=== PATIENT | female | born 1945 | race African-American/Black ===

== ENCOUNTER 2017-04-27 14:17 | Inpatient (IN) | payer OTHER ==
[~2017-04-27] VITALS: Ht 165.1 cm; Wt 69.4 kg
[2017-04-27 15:04] LABS: BASOPHILS % 1.9 % (0.0-2.0); EOSINOPHILS % 2.4 % (0.0-5.0); HEMATOCRIT. 27.2 % (36.0-48.0); HEMOGLOBIN. 8.8 g/dL (12.0-16.0); LYMPHOCYTES % 16.5 % (20.0-50.0); MEAN CORPUSCULAR HEMOGLOBIN 28.7 pg (28.0-32.0); MEAN CORPUSCULAR VOLUME 88.7 fL (81.0-99.0); MEAN PLATELET VOLUME 7.2 fl (7.4-10.4); MONOCYTES % 4.6 % (2.0-8.0); NEUTROPHILS % 74.6 % (40.0-76.0); PLATELET 377 x1000/uL (130-400); RED BLOOD CELL COUNT 3.07 mill/uL (4.2-5.4); RED CELL DISTRIBUTION WIDTH 14.7 % (11.6-14.6)
[2017-04-27 15:16] LABS: PROTHROMBIN TIME 10.7 sec (9.4-11.6)
[2017-04-27 15:19] LABS: CARBON DIOXIDE 20 mEq/L (21-32); CHLORIDE 109 mEq/L (98-107); CREATINE KINASE MB FRACTION 3.1 ng/mL (0.5-3.6); TROPONIN I 0.05 ng/mL (0.00-0.04)
[2017-04-27] MEDS ORDERED: HYDRALAZINE HCL 50MG TABLET PO ONE (16:00)
[2017-04-27 16:16] LABS: CLARITY URINE CLOUDY (CLEAR); COLOR URINE YELLOW (YELLOW); GLUCOSE URINE NEGATIVE (NEGATIVE); KETONES URINE NEGATIVE (NEGATIVE); LEUKOCYTE ESTERASE URINE 2+ (NEGATIVE); NITRITE URINE NEGATIVE (NEGATIVE); OCCULT BLOOD URINE 1+ (NEGATIVE); PH URINE 6.5 (4.5-8.0); PROTEIN URINE 4+ (NEGATIVE); SPECIFIC GRAVITY URINE 1.014 (1.005-1.030); UROBILINOGEN URINE 0.2 E.U./dL (0.2-1.0)
[2017-04-27] MEDS ORDERED: CEFTRIAXONE 1 G PREMIX 50 ML IV ONE (16:30)
[2017-04-27] MEDS ORDERED: NITROGLYCERIN 0.4MG TABLET SL SL PRN (16:45)
[2017-04-27] MEDS ORDERED: DEXTROSE 50% WATER 50ML SYRINGE IV PRN (16:45)
[2017-04-27] MEDS ORDERED: IPRATROPIUM/ALBUTEROL 0.5-3(2.5)MG/3ML NEB INH PRN (16:45)
[2017-04-27] MEDS ORDERED: TRAMADOL 50MG TABLET PO PRN (16:45)
[2017-04-27] MEDS ORDERED: MAGNESIUM/ALUMINUM HYDROXIDE/SIMETHICONE 30ML UDC PO PRN (16:45)
[2017-04-27] MEDS ORDERED: ONDANSETRON HCL 4MG/2ML VIAL IV PRN (16:45)
[2017-04-27] MEDS ORDERED: DOCUSATE SODIUM 100MG CAPSULE PO PRN (16:45)
[2017-04-27] MEDS ORDERED: DIPHENHYDRAMINE 50MG/ML VIAL IV PRN (16:45)
[2017-04-27] MEDS ORDERED: CLONIDINE 0.2MG TABLET PO PRN (16:45)
[2017-04-27] MEDS ORDERED: ACETAMINOPHEN 325MG TABLET PO PRN (16:45)
[2017-04-27] MEDS ORDERED: GUAIFENESIN 200MG/10ML SUGAR FREE UDC PO PRN (16:45)
[2017-04-27 17:47] LABS: FOLIC ACID (FOLATE) SERUM 11.8 ng/mL (>5.38)
[2017-04-27 18:12] LABS: *AMPHETAMINES SCREEN URINE NEGATIVE (NEGATIVE); *BARBITURATES SCREEN URINE NEGATIVE (NEGATIVE); *BENZODIAZEPINES SCREEN URINE NEGATIVE (NEGATIVE); *COCAINE SCREEN URINE NEGATIVE (NEGATIVE); CANNABINOID URINE SCREEN NEGATIVE (NEGATIVE); METHADONE URINE SCREEN NEGATIVE (NEGATIVE); OPIATES URINE SCREEN NEGATIVE (NEGATIVE); PHENCYCLIDINE URINE SCREEN NEGATIVE (NEGATIVE)
[2017-04-27] MEDS ORDERED: LEVOFLOXACIN 500MG PREMIX 100 ML IV ONE (19:19)
[2017-04-27] MEDS: AMLODIPINE 10MG TABLET PO SCH (19:30)
[2017-04-27 20:30] VITALS: BP 190/106
[2017-04-27] MEDS: INSULIN LISPRO 100 UNITS/ML SUBCUT SCH (21:00)
[2017-04-27] MEDS ORDERED: ENOXAPARIN 30MG/0.3ML SYR SUBCUT SCH (21:00)
[2017-04-27] MEDS ORDERED: ZOLPIDEM TARTRATE 5MG TABLET PO PRN (21:00)
[2017-04-27] MEDS: BLOOD SUGAR DIAGNOSTIC STRIP TEST SCH (21:10)
[2017-04-27] MEDS: METOPROLOL TARTRATE 25MG TABLET PO SCH (21:18)
[2017-04-27] MEDS: HYDRALAZINE HCL 50MG TABLET PO SCH (21:18)
[2017-04-27] MEDS ORDERED: AMLO5TAB4 PO (21:38)
[2017-04-27] MEDS: NITROGLYCERIN 0.4MG/HR PATCH TOP SCH (21:49)
[2017-04-27 22:50] LABS: CREATINE KINASE MB FRACTION 3.5 ng/mL (0.5-3.6); TROPONIN I 0.16 ng/mL (0.00-0.04)
[2017-04-28] VITALS: BP 131/70
[2017-04-28 04:00] VITALS: BP 124/76
[2017-04-28] MEDS: HYDRALAZINE HCL 50MG TABLET PO SCH ×2 (05:17→13:43)
[2017-04-28 07:28] LABS: CREATINE KINASE MB FRACTION 3.7 ng/mL (0.5-3.6); TROPONIN I 0.12 ng/mL (0.00-0.04)
[2017-04-28 07:39] LABS: BASOPHILS % 0.4 % (0.0-2.0); HEMATOCRIT. 27.5 % (36.0-48.0); LYMPHOCYTES % 12.2 % (20.0-50.0); MEAN CORPUSCULAR VOLUME 88.9 fL (81.0-99.0); MEAN PLATELET VOLUME 7.6 fl (7.4-10.4); MONOCYTES % 3.1 % (2.0-8.0); NEUTROPHILS % 84.3 % (40.0-76.0); PLATELET 387 x1000/uL (130-400); RED BLOOD CELL COUNT 3.09 mill/uL (4.2-5.4)
[2017-04-28] MEDS: BLOOD SUGAR DIAGNOSTIC STRIP TEST SCH ×2 (07:44→12:37)
[2017-04-28] MEDS: INSULIN LISPRO 100 UNITS/ML SUBCUT SCH ×2 (07:44→12:59)
[2017-04-28 07:55] LABS: CARBON DIOXIDE 18 mEq/L (21-32); CHLORIDE 106 mEq/L (98-107)
[2017-04-28 08:00] VITALS: BP 137/64
[2017-04-28] MEDS: AMLODIPINE 10MG TABLET PO SCH (08:28)
[2017-04-28] MEDS: METOPROLOL TARTRATE 25MG TABLET PO SCH (08:29)
[2017-04-28] MEDS: NITROGLYCERIN 0.4MG/HR PATCH TOP SCH (09:58)
[2017-04-28] MEDS ORDERED: FUROSEMIDE 100MG/10ML VIAL IVP NR (10:00)
[2017-04-28 10:35] LABS: BG BASE EXCESS -6.5 mmol/L (-2.0-2.0); BG CARBOXYHEMOGLOBIN 0.3 % (0.5-1.5); BG DEOXYHEMOGLOBIN 2.8 % (0.0-5.0); BG FRACTION INSPIRED OXYGEN 24; BG HCO3 ACT 17.4 mmol/L (22.0-26.0); BG METHEMOGLOBIN 0.2 % (0.0-1.5); BG OXYGEN SATURATION 97.2 % (92.0-98.5); BG OXYHEMOGLOBIN 96.7 % (94.0-97.0); BG PH 7.397 (7.350-7.450); BG PO2 94.8 mmHg (75.0-100.0); BG SAMPLE SITE RIGHT RADIAL; BG TOTAL HEMOGLOBIN 9.1 g/dL (12.0-18.0); BG VENT MODE NASAL CANNULA
[2017-04-28 12:00] VITALS: BP 134/70
[2017-04-28] MEDS ORDERED: EPOETIN ALFA 10000UNITS/ML VIAL SUBCUT NR (12:00)
[2017-04-28 12:49] LABS: FERRITIN 126 ng/mL (10-291)
[2017-04-28 13:01] LABS: HEPATITIS B SURFACE ANTIGEN NEGATIVE
[2017-04-28 16:00] VITALS: BP 114/62
[2017-04-28 17:49] VITALS: BP 126/75
[2017-04-28] MEDS ORDERED: ATORVASTATIN CALCIUM 40MG TABLET PO SCH (21:00)
[2017-04-29] MEDS ORDERED: LEVOFLOXACIN 250MG PREMIX 50 ML IV SCH (14:00)
[2017-04-30 13:12] LABS: A/G RATIO 0.7 (0.7-1.7); ALBUMIN 2.6 g/dL (2.9-4.4); ALPHA-1-GLOBULIN 0.3 g/dL (0.0-0.4); ALPHA-2-GLOBULIN 0.9 g/dL (0.4-1.0); GAMMA GLOBULINS 1.3 g/dL (0.4-1.8); GLOBULIN TOTAL 3.5 g/dL (2.2-3.9); M-SPIKE Not Observed g/dL (Not Observed); TOTAL PROTEIN SERUM 6.1 g/dL (6.0-8.5)
[2017-05-01 13:09] LABS: COMPLEMENT C3 96 mg/dL (82-167)
== END 2017-04-28 18:10 | disposition short-term general hospital (02) | DRG 682 ==
LOC: ER 14:17 → 7WST 16:31 → EDBEDREQ 16:34 → ENRESERV 17:07
PROVIDERS: ADMIT Internal Medicine; ATTEND Internal Medicine
DX: N17.0 Acute kidney failure with tubular necrosis (principal); E43 Unspecified severe protein-calorie malnutrition; J96.91 Respiratory failure, unspecified with hypoxia; G93.41 Metabolic encephalopathy; J81.1 Chronic pulmonary edema; E87.2 Acidosis; E11.22 Type 2 diabetes mellitus with diabetic chronic kidney disease; E11.65 Type 2 diabetes mellitus with hyperglycemia; N39.0 Urinary tract infection, site not specified; D63.8 Anemia in other chronic diseases classified elsewhere; E78.5 Hyperlipidemia, unspecified; E83.51 Hypocalcemia; Z82.49 Family history of ischemic heart disease and other diseases of the circulatory system; Z86.73 Personal history of transient ischemic attack (TIA), and cerebral infarction without residual deficits; Z68.25 Body mass index [BMI] 25.0-25.9, adult; I10 Essential (primary) hypertension
CPT/HCPCS: 36415; 36600; 70450; 71010; 76770; 80053; 80061; 80305; 81001; 82375; 82550; 82553; 82570; 82607; 82728; 82746; 82805; 82962; 83036; 83540; 83550; 84155; 84156; 84165; 84484; 85025; 85610; 86160; 86592; 86803; 87086; 87186; 87340; 93005; 93970; 94664; 96365; 96372; 99285; J0696; J0885; J1650; J1815; J1940; J1956; J7620

== ENCOUNTER 2022-08-22 13:38 | Inpatient (IN) | payer MEDICARE, MEDICAID ==
[~2022-08-22] VITALS: Ht 165.1 cm; Wt 63.5 kg
[~2022-08-22 13:38] MED LIST: AMLO5TAB4 PO
[2022-08-22 14:43] LABS: MEAN CORPUSCULAR HEMOGLOBIN 30.1 pg (28.0-32.0); MEAN CORPUSCULAR VOLUME 93.5 fL (81.0-99.0); MEAN PLATELET VOLUME 6.7 fl (7.4-10.4); PLATELET 259 x1000/uL (130-400); RED BLOOD CELL COUNT 3.63 mill/uL (4.2-5.4); RED CELL DISTRIBUTION WIDTH 20.9 % (11.6-14.6)
[2022-08-22 14:49] LABS: CHLORIDE 104 mEq/L (98-107); PROTHROMBIN TIME 10.6 sec (9.6-11.0)
[2022-08-22 14:59] LABS: ETHANOL BLOOD < 10 mg/dL
[2022-08-22] MEDS ORDERED: CALC667T2 PO (15:03)
[2022-08-22 15:32] LABS: CLARITY URINE TURBID (CLEAR); COLOR URINE YELLOW (YELLOW); KETONES URINE NEGATIVE (NEGATIVE); LEUKOCYTE ESTERASE URINE 3+ (NEGATIVE); NITRITE URINE NEGATIVE (NEGATIVE); OCCULT BLOOD URINE 2+ (NEGATIVE); PH URINE 6.5 (4.5-8.0); PROTEIN URINE 3+ (NEGATIVE); SPECIFIC GRAVITY URINE 1.014 (1.005-1.030); UROBILINOGEN URINE 0.2 E.U./dL (0.2-1.0)
[2022-08-22 15:42] LABS: PLATELET ESTIMATE NORMAL
[2022-08-22 15:50] LABS: *AMPHETAMINES SCREEN URINE NEGATIVE (NEGATIVE); *BARBITURATES SCREEN URINE NEGATIVE (NEGATIVE); *BENZODIAZEPINES SCREEN URINE NEGATIVE (NEGATIVE); *COCAINE SCREEN URINE NEGATIVE (NEGATIVE); CANNABINOID URINE SCREEN NEGATIVE (NEGATIVE); METHADONE URINE SCREEN NEGATIVE (NEGATIVE); OPIATES URINE SCREEN NEGATIVE (NEGATIVE); PHENCYCLIDINE URINE SCREEN NEGATIVE (NEGATIVE)
[2022-08-22] MEDS ORDERED: PIPERACILLIN/TAZ 3.375G PREMIX 50 ML IV NR (16:30)
[2022-08-22] MEDS ORDERED: VANCOMYCIN 1G PREMIX 200 ML IV NR (16:30)
[2022-08-22] MEDS ORDERED: IOHEXOL-350 100 ML BOTTLE ONE (16:43)
[2022-08-22] MEDS ORDERED: ONDANSETRON HCL 4MG/2ML INJ IV PRN (17:15)
[2022-08-22] MEDS ORDERED: NITROGLYCERIN 0.4MG TABLET SL SL PRN (17:15)
[2022-08-22] MEDS ORDERED: ACETAMINOPHEN 325MG TABLET PO PRN ×2 (17:15)
[2022-08-22] MEDS ORDERED: IPRATROPIUM/ALBUTEROL 0.5-3(2.5)MG/3ML NEB NEB PRN (17:15)
[2022-08-22] MEDS ORDERED: CLONIDINE 0.1MG TABLET PO PRN (17:15)
[2022-08-22] MEDS ORDERED: ZOLPIDEM TARTRATE 5MG TABLET PO PRN (17:15)
[2022-08-22] MEDS ORDERED: DOCUSATE SODIUM 100MG CAPSULE PO PRN (17:15)
[2022-08-22] MEDS ORDERED: DEXTROSE 50% WATER 50ML SYRINGE IV PRN (17:15)
[2022-08-22] MEDS ORDERED: MAGNESIUM/ALUMINUM HYDROXIDE/SIMETHICONE 30ML UDC PO PRN (17:15)
[2022-08-22] MEDS ORDERED: PIPERACILLIN/TAZ 3.375G PREMIX 50 ML IV SCH (17:15)
[2022-08-22] MEDS ORDERED: GUAIFENESIN 200MG/10ML SUGAR FREE UDC PO PRN (17:15)
[2022-08-22] MEDS: INSULIN LISPRO 100 UNITS/ML SUBCUT SCH ×2 (18:00→21:00)
[2022-08-22] MEDS ORDERED: VANCOMYCIN 500MG PREMIX 100 ML IV NR (18:45)
[2022-08-22 19:06] LABS: T4 FREE 0.84 ng/dL (0.76-1.46)
[2022-08-22 20:41] LABS: VITAMIN B12 SERUM 293 pg/mL (211-911)
[2022-08-22] MEDS: FAMOTIDINE 20MG TABLET PO SCH (21:00)
[2022-08-22] MEDS: BLOOD SUGAR DIAGNOSTIC STRIP TEST SCH (21:31)
[2022-08-22] MEDS: ENOXAPARIN 30MG/0.3ML SYR SUBCUT SCH (21:39)
[2022-08-22 23:07] LABS: CREATINE KINASE MB FRACTION 2.3 ng/mL (0.5-3.6)
[2022-08-23] VITALS (10 sets, daily range): BP systolic 94–165; BP diastolic 43–75
[2022-08-23 05:42] LABS: HEMATOCRIT. 31.4 % (36.0-48.0); HEMOGLOBIN. 10.2 g/dL (12.0-16.0); MEAN CORPUSCULAR HEMOGLOBIN 30.1 pg (28.0-32.0); MEAN CORPUSCULAR VOLUME 92.8 fL (81.0-99.0); MEAN PLATELET VOLUME 6.9 fl (7.4-10.4); PLATELET 256 x1000/uL (130-400); RED BLOOD CELL COUNT 3.38 mill/uL (4.2-5.4); RED CELL DISTRIBUTION WIDTH 21.4 % (11.6-14.6)
[2022-08-23 05:46] LABS: CHLORIDE 105 mEq/L (98-107)
[2022-08-23 05:59] LABS: PHOSPHORUS 5.2 mg/dL (2.5-4.9)
[2022-08-23] MEDS: INSULIN LISPRO 100 UNITS/ML SUBCUT SCH ×4 (07:00→20:35)
[2022-08-23] MEDS: PIPERACILLIN/TAZOBACTAM 3.375 G in DEXTROSE 5% WATER 50 ML IV SCH ×2 (07:06→23:43)
[2022-08-23] MEDS: BLOOD SUGAR DIAGNOSTIC STRIP TEST SCH ×4 (07:10→20:23)
[2022-08-23 08:37] LABS: ATYPICAL LYMPHOCYTES 1
[2022-08-23 08:39] LABS: PLATELET ESTIMATE NORMAL
[2022-08-23] MEDS: AMLODIPINE 10MG TABLET PO SCH (10:32)
[2022-08-23] MEDS: ASPIRIN 81MG EC TABLET PO SCH (10:32)
[2022-08-23] MEDS ORDERED: ALBUTEROL (0.083%) 2.5MG/3ML NEB HHN PRN (20:00)
[2022-08-23] MEDS ORDERED: IPRATROPIUM BROMIDE (0.02%) 0.5MG/2.5ML NEB HHN PRN (20:00)
[2022-08-23] MEDS: FAMOTIDINE 20MG TABLET PO SCH (20:22)
[2022-08-23] MEDS: ENOXAPARIN 30MG/0.3ML SYR SUBCUT SCH (20:23)
[2022-08-23 22:42] LABS: HEPATITIS B SURFACE ANTIGEN NEGATIVE
[2022-08-24] VITALS (15 sets, daily range): BP systolic 127–175; BP diastolic 52–78
[2022-08-24] MEDS: INSULIN LISPRO 100 UNITS/ML SUBCUT SCH ×4 (08:10→20:50)
[2022-08-24] MEDS: AMLODIPINE 10MG TABLET PO SCH (08:33)
[2022-08-24] MEDS: ASPIRIN 81MG EC TABLET PO SCH (08:33)
[2022-08-24] MEDS: BLOOD SUGAR DIAGNOSTIC STRIP TEST SCH ×4 (08:34→20:49)
[2022-08-24] MEDS: PIPERACILLIN/TAZOBACTAM 3.375 G in DEXTROSE 5% WATER 50 ML IV SCH ×2 (08:34→20:34)
[2022-08-24] MEDS: CLOPIDOGREL 75MG TABLET PO SCH (12:43)
[2022-08-24] MEDS ORDERED: VANCOMYCIN 500MG PREMIX 100 ML IV NR (16:00)
[2022-08-24] MEDS: FAMOTIDINE 20MG TABLET PO SCH (20:34)
[2022-08-24] MEDS: ENOXAPARIN 30MG/0.3ML SYR SUBCUT SCH (20:35)
[2022-08-24] MEDS ORDERED: ATORVASTATIN CALCIUM 10MG TABLET PO SCH (21:00)
[2022-08-25] VITALS: BP 128/45
[2022-08-25 04:00] VITALS: BP 131/48
[2022-08-25] MEDS: BLOOD SUGAR DIAGNOSTIC STRIP TEST SCH ×2 (05:58→12:21)
[2022-08-25] MEDS: INSULIN LISPRO 100 UNITS/ML SUBCUT SCH ×2 (07:53→12:21)
[2022-08-25 08:00] VITALS: BP 153/52
[2022-08-25] MEDS: AMLODIPINE 10MG TABLET PO SCH (08:50)
[2022-08-25] MEDS: PIPERACILLIN/TAZOBACTAM 3.375 G in DEXTROSE 5% WATER 50 ML IV SCH (08:50)
[2022-08-25] MEDS: CLOPIDOGREL 75MG TABLET PO SCH (08:50)
[2022-08-25 12:00] VITALS: BP 150/62
[2022-08-25 14:56] VITALS: BP 150/62
== END 2022-08-25 16:41 | DRG 64 ==
LOC: ER 13:38 → MICUSO 16:51 → SUPCPDRO 17:02 → EDBEDREQSVC 17:08 → EDBEDREQ 17:08 → EDBEDREQTM 17:08 → EDBEDREQSVC 18:36 → 7WST 08-23 10:23
PROVIDERS: ADMIT Internal Medicine; ATTEND Internal Medicine
PROC: 5A1D70Z Performance of Urinary Filtration, Intermittent, Less than 6 Hours Per Day (ICD-10-PCS; 2022-08-23)
PROC: 5A1D70Z Performance of Urinary Filtration, Intermittent, Less than 6 Hours Per Day (ICD-10-PCS; principal; 2022-08-24)
DX: I63.29 Cerebral infarction due to unspecified occlusion or stenosis of other precerebral arteries (principal); G92.8 Other toxic encephalopathy; N18.6 End stage renal disease; N25.81 Secondary hyperparathyroidism of renal origin; I12.0 Hypertensive chronic kidney disease with stage 5 chronic kidney disease or end stage renal disease; G81.91 Hemiplegia, unspecified affecting right dominant side; E44.0 Moderate protein-calorie malnutrition; R47.01 Aphasia; N30.90 Cystitis, unspecified without hematuria; E11.22 Type 2 diabetes mellitus with diabetic chronic kidney disease; D63.8 Anemia in other chronic diseases classified elsewhere; M17.10 Unilateral primary osteoarthritis, unspecified knee; R26.9 Unspecified abnormalities of gait and mobility; Z82.49 Family history of ischemic heart disease and other diseases of the circulatory system; Z86.73 Personal history of transient ischemic attack (TIA), and cerebral infarction without residual deficits; Z99.2 Dependence on renal dialysis; Z79.4 Long term (current) use of insulin; Z68.23 Body mass index [BMI] 23.0-23.9, adult; R29.720 NIHSS score 20
CPT/HCPCS: 36415; 70496; 70498; 70551; 71045; 80053; 80061; 80202; 80305; 80320; 81003; 82550; 82553; 82607; 82746; 82962; 83036; 83540; 83550; 83605; 83735; 84100; 84439; 84443; 84484; 85025; 86705; 86709; 86803; 87077; 87186; 87340; 90935; 93005; 93306; 93970; 97162; 97166; 97535; 99291; C1893; J1650; J2543; J3370; J7060; Q9967; G0480

== ENCOUNTER 2022-08-25 16:30 | Inpatient (IN) | payer MEDICARE, MEDICAID ==
[~2022-08-25] VITALS: Ht 165.1 cm; Wt 63.5 kg
[2022-08-25 16:30] VITALS: BP 148/61
[~2022-08-25 16:30] MED LIST changes: +CALC667T2 PO
[2022-08-25] MEDS ORDERED: IPRATROPIUM BROMIDE (0.02%) 0.5MG/2.5ML NEB HHN PRN (17:45)
[2022-08-25] MEDS ORDERED: GUAIFENESIN 200MG/10ML SUGAR FREE UDC PO PRN (17:45)
[2022-08-25] MEDS ORDERED: NITROGLYCERIN 0.4MG TABLET SL SL PRN (17:45)
[2022-08-25] MEDS ORDERED: MAGNESIUM/ALUMINUM HYDROXIDE/SIMETHICONE 30ML UDC PO PRN (17:45)
[2022-08-25] MEDS ORDERED: ZOLPIDEM TARTRATE 5MG TABLET PO PRN (17:45)
[2022-08-25] MEDS ORDERED: ALBUTEROL (0.083%) 2.5MG/3ML NEB HHN PRN (17:45)
[2022-08-25 19:45] VITALS: BP 159/69
[2022-08-25 20:00] VITALS: BP 159/69
[2022-08-25] MEDS ORDERED: ATORVASTATIN CALCIUM 10MG TABLET PO SCH (21:00)
[2022-08-25] MEDS: INSULIN LISPRO 100 UNITS/ML SUBCUT SCH (21:00)
[2022-08-25] MEDS: FAMOTIDINE 20MG TABLET PO SCH (21:43)
[2022-08-25] MEDS: BLOOD SUGAR DIAGNOSTIC STRIP TEST SCH (21:44)
[2022-08-25] MEDS: ENOXAPARIN 30MG/0.3ML SYR SUBCUT SCH (21:46)
[2022-08-25] MEDS: PIPERACILLIN/TAZOBACTAM 3.375 G in DEXTROSE 5% WATER 50 ML IV SCH (21:46)
[2022-08-26] MEDS: BLOOD SUGAR DIAGNOSTIC STRIP TEST SCH ×4 (06:45→21:29)
[2022-08-26 06:47] LABS: HEMATOCRIT. 32.6 % (36.0-48.0); HEMOGLOBIN. 10.7 g/dL (12.0-16.0); LYMPHOCYTES % 29.5 % (20.0-50.0); MEAN CORPUSCULAR HEMOGLOBIN 30.3 pg (28.0-32.0); MEAN CORPUSCULAR VOLUME 92.6 fL (81.0-99.0); MEAN PLATELET VOLUME 7.1 fl (7.4-10.4); MONOCYTES % 12.2 % (2.0-8.0); NEUTROPHILS % 50.3 % (40.0-76.0); PLATELET 262 x1000/uL (130-400); RED BLOOD CELL COUNT 3.53 mill/uL (4.2-5.4); RED CELL DISTRIBUTION WIDTH 20.6 % (11.6-14.6)
[2022-08-26] MEDS: DEXTROSE 50% WATER 50ML SYRINGE IV PRN (06:51)
[2022-08-26 06:56] LABS: CHLORIDE 102 mEq/L (98-107)
[2022-08-26 08:00] VITALS: BP 143/63
[2022-08-26] MEDS: DOCUSATE SODIUM 100MG CAPSULE PO SCH ×2 (08:22→17:00)
[2022-08-26] MEDS: AMLODIPINE 10MG TABLET PO SCH (08:23)
[2022-08-26] MEDS: CLOPIDOGREL 75MG TABLET PO SCH (08:23)
[2022-08-26] MEDS: ENOXAPARIN 30MG/0.3ML SYR SUBCUT SCH (08:23)
[2022-08-26] MEDS: PIPERACILLIN/TAZOBACTAM 3.375 G in DEXTROSE 5% WATER 50 ML IV SCH ×2 (08:25→21:28)
[2022-08-26] MEDS: INSULIN LISPRO 100 UNITS/ML SUBCUT SCH ×4 (08:30→22:07)
[2022-08-26] MEDS: ASPIRIN 81MG TABLET PO SCH (13:16)
[2022-08-26 18:35] LABS: HEPATITIS B SURFACE ANTIGEN NEGATIVE
[2022-08-26 20:00] VITALS: BP 164/65
[2022-08-26] MEDS: FAMOTIDINE 20MG TABLET PO SCH (21:29)
[2022-08-26] MEDS: ATORVASTATIN CALCIUM 10MG TABLET PO SCH (21:44)
[2022-08-26] MEDS: CLONIDINE 0.1MG TABLET PO PRN (21:45)
[2022-08-27] VITALS (7 sets, daily range): BP systolic 144–178; BP diastolic 63–70
[2022-08-27 07:02] LABS: BASOPHILS % 1.4 % (0.0-2.0); EOSINOPHILS % 7.4 % (0.0-5.0); HEMATOCRIT. 31.5 % (36.0-48.0); HEMOGLOBIN. 10.1 g/dL (12.0-16.0); LYMPHOCYTES % 32.8 % (20.0-50.0); MEAN CORPUSCULAR HEMOGLOBIN 30.1 pg (28.0-32.0); MEAN CORPUSCULAR VOLUME 93.2 fL (81.0-99.0); MEAN PLATELET VOLUME 7.2 fl (7.4-10.4); MONOCYTES % 11.7 % (2.0-8.0); NEUTROPHILS % 46.7 % (40.0-76.0); PLATELET 277 x1000/uL (130-400); RED BLOOD CELL COUNT 3.38 mill/uL (4.2-5.4); RED CELL DISTRIBUTION WIDTH 20.4 % (11.6-14.6)
[2022-08-27] MEDS: BLOOD SUGAR DIAGNOSTIC STRIP TEST SCH ×4 (07:13→20:56)
[2022-08-27] MEDS: DEXTROSE 50% WATER 50ML SYRINGE IV PRN (07:14)
[2022-08-27 07:53] LABS: FERRITIN 1570 ng/mL (10-291)
[2022-08-27 08:06] LABS: VITAMIN B12 SERUM 351 pg/mL (211-911)
[2022-08-27] MEDS: INSULIN LISPRO 100 UNITS/ML SUBCUT SCH ×4 (09:00→21:00)
[2022-08-27] MEDS: PIPERACILLIN/TAZOBACTAM 3.375 G in DEXTROSE 5% WATER 50 ML IV SCH (11:36)
[2022-08-27] MEDS: DOCUSATE SODIUM 100MG CAPSULE PO SCH ×2 (11:36→11:42)
[2022-08-27] MEDS: ASPIRIN 81MG TABLET PO SCH (11:36)
[2022-08-27] MEDS: AMLODIPINE 10MG TABLET PO SCH (11:37)
[2022-08-27] MEDS: ENOXAPARIN 30MG/0.3ML SYR SUBCUT SCH (11:37)
[2022-08-27] MEDS: CLOPIDOGREL 75MG TABLET PO SCH (11:37)
[2022-08-27] MEDS: ACETAMINOPHEN 325MG TABLET PO PRN (16:20)
[2022-08-27] MEDS: CEPHALEXIN 250MG CAPSULE PO SCH (18:17)
[2022-08-27] MEDS: FAMOTIDINE 20MG TABLET PO SCH (20:55)
[2022-08-27] MEDS: ATORVASTATIN CALCIUM 10MG TABLET PO SCH (20:55)
[2022-08-28] MEDS: CEPHALEXIN 250MG CAPSULE PO SCH ×4 (00:10→18:09)
[2022-08-28] MEDS: BLOOD SUGAR DIAGNOSTIC STRIP TEST SCH ×4 (06:52→20:59)
[2022-08-28 08:00] VITALS: BP 154/82
[2022-08-28] MEDS: ASPIRIN 81MG TABLET PO SCH (08:39)
[2022-08-28] MEDS: AMLODIPINE 10MG TABLET PO SCH (08:40)
[2022-08-28] MEDS: CLOPIDOGREL 75MG TABLET PO SCH (08:41)
[2022-08-28] MEDS: ENOXAPARIN 30MG/0.3ML SYR SUBCUT SCH (08:41)
[2022-08-28] MEDS: DOCUSATE SODIUM 100MG CAPSULE PO SCH ×2 (08:42→17:00)
[2022-08-28] MEDS: INSULIN LISPRO 100 UNITS/ML SUBCUT SCH ×4 (08:45→20:59)
[2022-08-28 10:00] VITALS: BP 174/67
[2022-08-28] MEDS: CLONIDINE 0.1MG TABLET PO PRN (10:41)
[2022-08-28] MEDS: ONDANSETRON HCL 4MG/2ML INJ IV PRN (13:17)
[2022-08-28 13:48] VITALS: BP 148/63
[2022-08-28] MEDS ORDERED: SENNOSIDES 8.6MG TABLET PO PRN (18:30)
[2022-08-28 19:47] VITALS: BP 162/63
[2022-08-28] MEDS: FAMOTIDINE 20MG TABLET PO SCH (22:18)
[2022-08-28] MEDS: ATORVASTATIN CALCIUM 10MG TABLET PO SCH (22:18)
[2022-08-29] VITALS (12 sets, daily range): BP systolic 135–180; BP diastolic 65–78
[2022-08-29] MEDS: METOCLOPRAMIDE HCL 10MG/2ML VIAL IV SCH ×4 (00:30→17:28)
[2022-08-29] MEDS: CEPHALEXIN 250MG CAPSULE PO SCH ×4 (00:30→17:28)
[2022-08-29 06:55] LABS: BASOPHILS % 2.1 % (0.0-2.0); EOSINOPHILS % 6.4 % (0.0-5.0); HEMATOCRIT. 34.9 % (36.0-48.0); HEMOGLOBIN. 11.1 g/dL (12.0-16.0); LYMPHOCYTES % 34.5 % (20.0-50.0); MEAN CORPUSCULAR HEMOGLOBIN 29.8 pg (28.0-32.0); MEAN CORPUSCULAR VOLUME 94.1 fL (81.0-99.0); MEAN PLATELET VOLUME 6.8 fl (7.4-10.4); MONOCYTES % 11.2 % (2.0-8.0); NEUTROPHILS % 45.8 % (40.0-76.0); PLATELET 312 x1000/uL (130-400); RED BLOOD CELL COUNT 3.71 mill/uL (4.2-5.4)
[2022-08-29] MEDS: BLOOD SUGAR DIAGNOSTIC STRIP TEST SCH ×4 (07:16→21:50)
[2022-08-29] MEDS: INSULIN LISPRO 100 UNITS/ML SUBCUT SCH ×4 (07:16→21:50)
[2022-08-29] MEDS: DOCUSATE SODIUM 100MG CAPSULE PO SCH ×2 (08:52→17:00)
[2022-08-29] MEDS: CLOPIDOGREL 75MG TABLET PO SCH (08:56)
[2022-08-29] MEDS: AMLODIPINE 10MG TABLET PO SCH (08:57)
[2022-08-29] MEDS: ASPIRIN 81MG TABLET PO SCH (08:57)
[2022-08-29] MEDS: ONDANSETRON HCL 4MG/2ML INJ IV PRN (08:57)
[2022-08-29] MEDS: ENOXAPARIN 30MG/0.3ML SYR SUBCUT SCH (08:57)
[2022-08-29] MEDS: CLONIDINE 0.1MG TABLET PO PRN (12:43)
[2022-08-29] MEDS ORDERED: LOSARTAN POTASSIUM 100 MG TABLET PO SCH (16:00)
[2022-08-29] MEDS: FAMOTIDINE 20MG TABLET PO SCH (21:50)
[2022-08-29] MEDS: ATORVASTATIN CALCIUM 10MG TABLET PO SCH (21:50)
[2022-08-29] MEDS: HYDRALAZINE HCL 50MG TABLET PO SCH (22:55)
[2022-08-30] MEDS: CEPHALEXIN 250MG CAPSULE PO SCH ×4 (00:30→17:09)
[2022-08-30] MEDS: METOCLOPRAMIDE HCL 10MG/2ML VIAL IV SCH ×4 (00:30→17:09)
[2022-08-30] MEDS: HYDRALAZINE HCL 50MG TABLET PO SCH ×3 (06:50→21:42)
[2022-08-30] MEDS: BLOOD SUGAR DIAGNOSTIC STRIP TEST SCH ×4 (07:12→21:42)
[2022-08-30 08:00] VITALS: BP 133/47
[2022-08-30] MEDS: INSULIN LISPRO 100 UNITS/ML SUBCUT SCH ×4 (08:02→21:00)
[2022-08-30] MEDS: CLOPIDOGREL 75MG TABLET PO SCH (09:16)
[2022-08-30] MEDS: DOCUSATE SODIUM 100MG CAPSULE PO SCH ×2 (09:16→17:09)
[2022-08-30] MEDS: AMLODIPINE 10MG TABLET PO SCH (09:16)
[2022-08-30] MEDS: ASPIRIN 81MG TABLET PO SCH (09:16)
[2022-08-30] MEDS: ENOXAPARIN 30MG/0.3ML SYR SUBCUT SCH (09:17)
[2022-08-30 20:00] VITALS: BP 132/57
[2022-08-30 21:37] LABS: HEPATITIS B SURFACE ANTIGEN NEGATIVE
[2022-08-30] MEDS: FAMOTIDINE 20MG TABLET PO SCH (21:42)
[2022-08-30] MEDS: ATORVASTATIN CALCIUM 10MG TABLET PO SCH (21:42)
[2022-08-31] MEDS: CEPHALEXIN 250MG CAPSULE PO SCH ×3 (00:59→12:00)
[2022-08-31] MEDS: METOCLOPRAMIDE HCL 10MG/2ML VIAL IV SCH (00:59)
[2022-08-31] MEDS: BLOOD SUGAR DIAGNOSTIC STRIP TEST SCH ×4 (06:45→21:39)
[2022-08-31] MEDS: HYDRALAZINE HCL 50MG TABLET PO SCH ×3 (06:45→21:39)
[2022-08-31 08:00] VITALS: BP 143/55
[2022-08-31] MEDS: CLOPIDOGREL 75MG TABLET PO SCH (08:33)
[2022-08-31] MEDS: ASPIRIN 81MG TABLET PO SCH (08:34)
[2022-08-31] MEDS: DOCUSATE SODIUM 100MG CAPSULE PO SCH ×2 (08:34→17:00)
[2022-08-31] MEDS: AMLODIPINE 10MG TABLET PO SCH (08:34)
[2022-08-31] MEDS: ENOXAPARIN 30MG/0.3ML SYR SUBCUT SCH (08:41)
[2022-08-31] MEDS: INSULIN LISPRO 100 UNITS/ML SUBCUT SCH ×4 (09:00→21:00)
[2022-08-31] MEDS: ACETAMINOPHEN 325MG TABLET PO PRN (17:30)
[2022-08-31 19:10] LABS: 25-HYDROXY VITAMIN D3 8.6 ng/mL (.)
[2022-08-31 20:00] VITALS: BP 137/52
[2022-08-31] MEDS: ATORVASTATIN CALCIUM 10MG TABLET PO SCH (21:33)
[2022-08-31] MEDS: FAMOTIDINE 20MG TABLET PO SCH (21:33)
[2022-09-01] VITALS (7 sets, daily range): BP systolic 66–139; BP diastolic 33–65
[2022-09-01] MEDS: HYDRALAZINE HCL 50MG TABLET PO SCH ×3 (06:42→22:00)
[2022-09-01] MEDS: BLOOD SUGAR DIAGNOSTIC STRIP TEST SCH ×4 (06:45→21:21)
[2022-09-01] MEDS ORDERED: CEPHALEXIN 250MG CAPSULE PO SCH (09:00)
[2022-09-01] MEDS: ENOXAPARIN 30MG/0.3ML SYR SUBCUT SCH (09:00)
[2022-09-01] MEDS: INSULIN LISPRO 100 UNITS/ML SUBCUT SCH ×4 (09:00→21:00)
[2022-09-01] MEDS: DOCUSATE SODIUM 100MG CAPSULE PO SCH ×2 (10:06→17:00)
[2022-09-01] MEDS: ASPIRIN 81MG TABLET PO SCH (10:06)
[2022-09-01] MEDS: AMLODIPINE 10MG TABLET PO SCH (10:06)
[2022-09-01] MEDS: CLOPIDOGREL 75MG TABLET PO SCH (10:07)
[2022-09-01] MEDS: ERGOCALCIFEROL 50000UNITS CAPSULE PO SCH (13:15)
[2022-09-01] MEDS: ACETAMINOPHEN 325MG TABLET PO PRN (18:30)
[2022-09-01] MEDS: ATORVASTATIN CALCIUM 10MG TABLET PO SCH (21:15)
[2022-09-01] MEDS: FAMOTIDINE 20MG TABLET PO SCH (21:15)
[2022-09-02] MEDS: BLOOD SUGAR DIAGNOSTIC STRIP TEST SCH ×4 (06:35→21:00)
[2022-09-02] MEDS: HYDRALAZINE HCL 50MG TABLET PO SCH ×3 (06:35→22:00)
[2022-09-02 08:00] VITALS: BP 123/54
[2022-09-02] MEDS: INSULIN LISPRO 100 UNITS/ML SUBCUT SCH ×4 (09:00→21:00)
[2022-09-02] MEDS: ASPIRIN 81MG TABLET PO SCH (10:30)
[2022-09-02] MEDS: DOCUSATE SODIUM 100MG CAPSULE PO SCH ×2 (10:30→17:44)
[2022-09-02] MEDS: ENOXAPARIN 30MG/0.3ML SYR SUBCUT SCH (10:31)
[2022-09-02] MEDS: CLOPIDOGREL 75MG TABLET PO SCH (10:31)
[2022-09-02] MEDS: AMLODIPINE 10MG TABLET PO SCH (10:31)
[2022-09-02] MEDS: ACETAMINOPHEN 325MG TABLET PO PRN (17:44)
[2022-09-02 20:00] VITALS: BP 119/59
[2022-09-02] MEDS: FAMOTIDINE 20MG TABLET PO SCH (22:24)
[2022-09-02] MEDS: ATORVASTATIN CALCIUM 10MG TABLET PO SCH (22:24)
[2022-09-02 22:36] LABS: HEPATITIS B SURFACE ANTIGEN NEGATIVE
[2022-09-03] VITALS (9 sets, daily range): BP systolic 132–149; BP diastolic 52–63
[2022-09-03] MEDS: HYDRALAZINE HCL 50MG TABLET PO SCH ×3 (06:00→23:15)
[2022-09-03] MEDS: BLOOD SUGAR DIAGNOSTIC STRIP TEST SCH ×4 (06:10→21:49)
[2022-09-03] MEDS: INSULIN LISPRO 100 UNITS/ML SUBCUT SCH ×4 (06:11→21:58)
[2022-09-03] MEDS: ENOXAPARIN 30MG/0.3ML SYR SUBCUT SCH (08:28)
[2022-09-03] MEDS: CLOPIDOGREL 75MG TABLET PO SCH (08:28)
[2022-09-03] MEDS: DOCUSATE SODIUM 100MG CAPSULE PO SCH ×2 (08:28→16:19)
[2022-09-03] MEDS: ASPIRIN 81MG TABLET PO SCH (08:28)
[2022-09-03] MEDS: AMLODIPINE 10MG TABLET PO SCH (08:28)
[2022-09-03] MEDS: ACETAMINOPHEN 325MG TABLET PO PRN (18:57)
[2022-09-03] MEDS: FAMOTIDINE 20MG TABLET PO SCH (21:49)
[2022-09-03] MEDS: ATORVASTATIN CALCIUM 10MG TABLET PO SCH (21:50)
[2022-09-04] MEDS: HYDRALAZINE HCL 50MG TABLET PO SCH ×3 (06:14→21:45)
[2022-09-04 06:32] LABS: BASOPHILS % 1.7 % (0.0-2.0); EOSINOPHILS % 4.8 % (0.0-5.0); HEMATOCRIT. 33.2 % (36.0-48.0); HEMOGLOBIN. 10.9 g/dL (12.0-16.0); LYMPHOCYTES % 20.7 % (20.0-50.0); MEAN CORPUSCULAR VOLUME 91.6 fL (81.0-99.0); MEAN PLATELET VOLUME 6.9 fl (7.4-10.4); MONOCYTES % 13.4 % (2.0-8.0); NEUTROPHILS % 59.4 % (40.0-76.0); PLATELET 343 x1000/uL (130-400); RED BLOOD CELL COUNT 3.62 mill/uL (4.2-5.4)
[2022-09-04] MEDS: BLOOD SUGAR DIAGNOSTIC STRIP TEST SCH ×4 (07:17→21:43)
[2022-09-04] MEDS: INSULIN LISPRO 100 UNITS/ML SUBCUT SCH ×4 (07:18→21:00)
[2022-09-04 08:00] VITALS: BP 156/57
[2022-09-04] MEDS: CLOPIDOGREL 75MG TABLET PO SCH (11:51)
[2022-09-04] MEDS: AMLODIPINE 10MG TABLET PO SCH (11:51)
[2022-09-04] MEDS: ASPIRIN 81MG TABLET PO SCH (11:52)
[2022-09-04] MEDS: DOCUSATE SODIUM 100MG CAPSULE PO SCH ×2 (11:52→17:00)
[2022-09-04] MEDS: ENOXAPARIN 30MG/0.3ML SYR SUBCUT SCH (11:53)
[2022-09-04 20:00] VITALS: BP 153/60
[2022-09-04] MEDS: ATORVASTATIN CALCIUM 20MG TABLET PO SCH (21:45)
[2022-09-04] MEDS: FAMOTIDINE 20MG TABLET PO SCH (21:45)
[2022-09-05] VITALS (13 sets, daily range): BP systolic 115–136; BP diastolic 54–64
[2022-09-05] MEDS: HYDRALAZINE HCL 50MG TABLET PO SCH ×3 (06:00→22:00)
[2022-09-05] MEDS: BLOOD SUGAR DIAGNOSTIC STRIP TEST SCH ×4 (06:24→21:00)
[2022-09-05] MEDS: INSULIN LISPRO 100 UNITS/ML SUBCUT SCH ×4 (06:24→21:00)
[2022-09-05] MEDS: CLOPIDOGREL 75MG TABLET PO SCH (10:28)
[2022-09-05] MEDS: AMLODIPINE 10MG TABLET PO SCH (10:28)
[2022-09-05] MEDS: ASPIRIN 81MG TABLET PO SCH (10:28)
[2022-09-05] MEDS: DOCUSATE SODIUM 100MG CAPSULE PO SCH ×2 (10:28→17:45)
[2022-09-05] MEDS: ENOXAPARIN 30MG/0.3ML SYR SUBCUT SCH (10:29)
[2022-09-05] MEDS: ACETAMINOPHEN 325MG TABLET PO PRN ×2 (15:54→17:46)
[2022-09-05] MEDS: ATORVASTATIN CALCIUM 20MG TABLET PO SCH (21:05)
[2022-09-05] MEDS: FAMOTIDINE 20MG TABLET PO SCH (21:06)
[2022-09-06] MEDS: BLOOD SUGAR DIAGNOSTIC STRIP TEST SCH ×4 (06:30→20:30)
[2022-09-06] MEDS: HYDRALAZINE HCL 50MG TABLET PO SCH ×3 (06:56→22:00)
[2022-09-06] MEDS: INSULIN LISPRO 100 UNITS/ML SUBCUT SCH ×4 (06:57→20:30)
[2022-09-06 08:00] VITALS: BP 149/60
[2022-09-06] MEDS: ASPIRIN 81MG TABLET PO SCH (09:36)
[2022-09-06] MEDS: CLOPIDOGREL 75MG TABLET PO SCH (09:37)
[2022-09-06] MEDS: AMLODIPINE 10MG TABLET PO SCH (09:37)
[2022-09-06] MEDS: DOCUSATE SODIUM 100MG CAPSULE PO SCH ×2 (09:37→18:08)
[2022-09-06] MEDS: ACETAMINOPHEN 325MG TABLET PO PRN (09:38)
[2022-09-06] MEDS: ENOXAPARIN 30MG/0.3ML SYR SUBCUT SCH (09:40)
[2022-09-06 19:46] VITALS: BP 159/68
[2022-09-06] MEDS: ATORVASTATIN CALCIUM 20MG TABLET PO SCH (20:29)
[2022-09-06] MEDS: FAMOTIDINE 20MG TABLET PO SCH (20:29)
[2022-09-06 22:43] LABS: HEPATITIS B SURFACE ANTIGEN NEGATIVE
[2022-09-07] VITALS (11 sets, daily range): BP systolic 118–150; BP diastolic 40–73
[2022-09-07] MEDS: HYDRALAZINE HCL 50MG TABLET PO SCH ×3 (05:39→22:00)
[2022-09-07] MEDS: BLOOD SUGAR DIAGNOSTIC STRIP TEST SCH ×4 (05:39→21:00)
[2022-09-07] MEDS: INSULIN LISPRO 100 UNITS/ML SUBCUT SCH ×4 (07:00→21:00)
[2022-09-07] MEDS: CLOPIDOGREL 75MG TABLET PO SCH (09:36)
[2022-09-07] MEDS: ASPIRIN 81MG TABLET PO SCH (09:36)
[2022-09-07] MEDS: DOCUSATE SODIUM 100MG CAPSULE PO SCH ×2 (09:36→17:00)
[2022-09-07] MEDS: AMLODIPINE 10MG TABLET PO SCH (09:36)
[2022-09-07] MEDS: ENOXAPARIN 30MG/0.3ML SYR SUBCUT SCH (09:37)
[2022-09-07] MEDS ORDERED: ATOR20TA PO (14:27)
[2022-09-07] MEDS ORDERED: FAMO20TA8 PO (14:27)
[2022-09-07] MEDS ORDERED: HYDR-4135 PO (14:27)
[2022-09-07] MEDS ORDERED: ASPI-1160 PO (14:27)
[2022-09-07] MEDS ORDERED: ERGO2000 PO (14:27)
[2022-09-07] MEDS ORDERED: CLOP75TA15 PO (14:27)
[2022-09-07] MEDS: ATORVASTATIN CALCIUM 20MG TABLET PO SCH (22:14)
[2022-09-07] MEDS: FAMOTIDINE 20MG TABLET PO SCH (22:14)
[2022-09-08] MEDS: BLOOD SUGAR DIAGNOSTIC STRIP TEST SCH ×2 (06:30→11:48)
[2022-09-08] MEDS: INSULIN LISPRO 100 UNITS/ML SUBCUT SCH ×2 (06:46→11:48)
[2022-09-08] MEDS: HYDRALAZINE HCL 50MG TABLET PO SCH (07:08)
[2022-09-08 08:00] VITALS: BP 152/52
[2022-09-08] MEDS: DOCUSATE SODIUM 100MG CAPSULE PO SCH ×2 (09:00→09:08)
[2022-09-08] MEDS: CLOPIDOGREL 75MG TABLET PO SCH (09:08)
[2022-09-08] MEDS: ASPIRIN 81MG TABLET PO SCH (09:08)
[2022-09-08] MEDS: AMLODIPINE 10MG TABLET PO SCH (09:08)
[2022-09-08] MEDS: ERGOCALCIFEROL 50000UNITS CAPSULE PO SCH (09:08)
[2022-09-08] MEDS: ENOXAPARIN 30MG/0.3ML SYR SUBCUT SCH (09:08)
[2022-09-08 09:20] VITALS: BP 152/52
== END 2022-09-08 11:55 | disposition home health service (06) | DRG 64 ==
PROVIDERS: ADMIT Physical Medicine & Rehabilitation Spinal Cord Injury Medicine; ATTEND Internal Medicine
PROC: 5A1D70Z Performance of Urinary Filtration, Intermittent, Less than 6 Hours Per Day (ICD-10-PCS; 2022-08-26)
PROC: 5A1D70Z Performance of Urinary Filtration, Intermittent, Less than 6 Hours Per Day (ICD-10-PCS; 2022-08-28)
PROC: 5A1D70Z Performance of Urinary Filtration, Intermittent, Less than 6 Hours Per Day (ICD-10-PCS; 2022-08-30)
PROC: 5A1D70Z Performance of Urinary Filtration, Intermittent, Less than 6 Hours Per Day (ICD-10-PCS; 2022-09-01)
PROC: 5A1D70Z Performance of Urinary Filtration, Intermittent, Less than 6 Hours Per Day (ICD-10-PCS; 2022-09-02)
PROC: 5A1D70Z Performance of Urinary Filtration, Intermittent, Less than 6 Hours Per Day (ICD-10-PCS; 2022-09-04)
PROC: 5A1D70Z Performance of Urinary Filtration, Intermittent, Less than 6 Hours Per Day (ICD-10-PCS; principal; 2022-09-06)
DX: I63.29 Cerebral infarction due to unspecified occlusion or stenosis of other precerebral arteries (principal); N18.6 End stage renal disease; I12.0 Hypertensive chronic kidney disease with stage 5 chronic kidney disease or end stage renal disease; G93.40 Encephalopathy, unspecified; E44.0 Moderate protein-calorie malnutrition; E87.1 Hypo-osmolality and hyponatremia; I69.351 Hemiplegia and hemiparesis following cerebral infarction affecting right dominant side; M17.10 Unilateral primary osteoarthritis, unspecified knee; R47.01 Aphasia; F41.9 Anxiety disorder, unspecified; F32.A Depression, unspecified; D63.8 Anemia in other chronic diseases classified elsewhere; E55.9 Vitamin D deficiency, unspecified; E11.22 Type 2 diabetes mellitus with diabetic chronic kidney disease; R47.1 Dysarthria and anarthria; R11.2 Nausea with vomiting, unspecified; E21.1 Secondary hyperparathyroidism, not elsewhere classified; E11.43 Type 2 diabetes mellitus with diabetic autonomic (poly)neuropathy; K31.84 Gastroparesis; Z79.02 Long term (current) use of antithrombotics/antiplatelets; Z79.4 Long term (current) use of insulin; Z79.82 Long term (current) use of aspirin; Z79.899 Other long term (current) drug therapy; Z82.49 Family history of ischemic heart disease and other diseases of the circulatory system; Z91.81 History of falling; Z99.2 Dependence on renal dialysis; Z68.23 Body mass index [BMI] 23.0-23.9, adult; R27.0 Ataxia, unspecified; M75.01 Adhesive capsulitis of right shoulder; M75.41 Impingement syndrome of right shoulder; S46.001A Unspecified injury of muscle(s) and tendon(s) of the rotator cuff of right shoulder, initial encounter; R41.89 Other symptoms and signs involving cognitive functions and awareness
CPT/HCPCS: 36415; 74018; 80048; 80053; 82306; 82607; 82728; 82746; 82962; 83036; 83540; 83550; 84134; 84443; 85025; 86705; 86709; 86803; 87340; 87426; 90935; 92523; 92610; 93970; 97110; 97112; 97116; 97162; 97166; 97530; 97535; J1650; J1815; J2405; J2543; J2765; J7060

== ENCOUNTER 2022-12-15 13:16 | Emergency (ER) | payer MEDICARE, MEDICAID ==
[~2022-12-15] VITALS: Ht 157.5 cm; Wt 67.0 kg
[~2022-12-15 13:16] MED LIST changes: -AMLO5TAB4 PO; +ASPI-1160 PO; +ATOR20TA PO; +CLOP75TA15 PO; +ERGO2000 PO; +FAMO20TA8 PO; +HYDR-4135 PO
[2022-12-15] MEDS ORDERED: MORPHINE SULFATE 10 MG/ML CPJ IM ONE (15:00)
[2022-12-15] MEDS ORDERED: T3 PO (15:16)
[2022-12-15 16:46] VITALS: BP 159/62
== END 2022-12-15 17:52 | disposition home or self-care (01) ==
LOC: ER 13:31
DX: S42.201A Unspecified fracture of upper end of right humerus, initial encounter for closed fracture (principal); I12.0 Hypertensive chronic kidney disease with stage 5 chronic kidney disease or end stage renal disease; E11.22 Type 2 diabetes mellitus with diabetic chronic kidney disease; N18.6 End stage renal disease; Z99.2 Dependence on renal dialysis; W18.39XA Other fall on same level, initial encounter; Y93.89 Activity, other specified; Y92.89 Other specified places as the place of occurrence of the external cause; Y99.8 Other external cause status
CPT/HCPCS: 73060; 96372; 99283; J2270

== ENCOUNTER 2023-12-11 12:21 | Inpatient (IN) | payer MEDICARE, MEDICAID ==
[~2023-12-11] VITALS: Ht 162.6 cm; Wt 62.1 kg
[~2023-12-11 12:21] MED LIST changes: -HYDR-4135 PO; +HYDR50TA39 PO; +T3 PO
[2023-12-11] MEDS: ACETAMINOPHEN 325MG TABLET PO STA (12:29)
[2023-12-11] MEDS: SODIUM CHLORIDE 0.9% 1,000 ML IV ONE (12:30)
[2023-12-11] MEDS ORDERED: CEFTRIAXONE 2GM/50ML 50 ML IV ONE (12:30)
[2023-12-11 13:35] LABS: HEMATOCRIT. 36.7 % (36.0-48.0); HEMOGLOBIN. 11.7 g/dL (12.0-16.0); MEAN CORPUSCULAR HGB CONC 31.9 g/dL (31.0-37.0); MEAN CORPUSCULAR VOLUME 87.8 fL (81.0-99.0); PLATELET 178 x1000/uL (130-400); RED BLOOD CELL COUNT 4.18 mill/uL (4.2-5.4); RED CELL DISTRIBUTION WIDTH 20.3 % (11.6-14.6); WHITE BLOOD COUNT 11.2 x1000/uL (4.5-11.0)
[2023-12-11 13:36] LABS: CHLORIDE 103 mEq/L (98-107); DIFFERENTIAL COMMENT 1; POTASSIUM 4.6 mEq/L (3.5-5.1); SODIUM 139 mEq/L (136-145)
[2023-12-11 13:37] LABS: CALCIUM 9.1 mg/dL (8.7-10.4); CARBON DIOXIDE 21 mEq/L (21-32)
[2023-12-11 13:42] LABS: GLUCOSE 57 mg/dL (70-105); UREA NITROGEN BLOOD 31 mg/dL (9-23)
[2023-12-11 13:48] LABS: LACTIC ACID 2.5 mmol/L (0.4-2.0)
[2023-12-11 13:55] LABS: CREATININE 5.6 mg/dL (0.6-1.0); TROPONIN I HIGH SENSITIVITY 64 ng/L (3.0-34)
[2023-12-11] MEDS: CEFTRIAXONE 1GM/50ML 50 ML IV SCH (14:07)
[2023-12-11 14:22] LABS: PLATELET ESTIMATE NORMAL
[2023-12-11 14:23] LABS: ANISOCYTOSIS 2+
[2023-12-11 15:05] LABS: PROTHROMBIN TIME 11.4 sec (9.6-11.0)
[2023-12-11 15:09] LABS: TROPONIN I HIGH SENSITIVITY 75 ng/L (3.0-34)
[2023-12-11] MEDS ORDERED: IPRATROPIUM/ALBUTEROL 0.5-3(2.5)MG/3ML NEB HHN PRN (17:15)
[2023-12-11] MEDS ORDERED: ONDANSETRON HCL 4MG/2ML INJ IV PRN (17:15)
[2023-12-11 17:37] LABS: ALANINE AMINOTRANSFERASE < 7 IU/L (10-49); ASPARTATE AMINOTRANSFERASE 20 IU/L (<34); BILIRUBIN TOTAL < 0.2 mg/dL (0.1-1.0); PROTEIN TOTAL 7.3 g/dL (6.0-8.3)
[2023-12-11 17:39] LABS: BILIRUBIN DIRECT < 0.1 mg/dL (<=3.0)
[2023-12-11] MEDS ORDERED: PIPERACILLIN/TAZO 3.375G/50ML 50 ML IV NR (17:45)
[2023-12-11] MEDS ORDERED: VANCOMYCIN 1G PREMIX 200 ML IV NR (17:45)
[2023-12-11] MEDS ORDERED: DEXTROSE 50% WATER 50ML SYRINGE IV PRN (18:15)
[2023-12-11] MEDS ORDERED: HYDRALAZINE 20MG/ML VIAL IV PRN (18:15)
[2023-12-11 20:40] VITALS: BP 136/69; PULSE 93; RESP 20; TEMP 98.1
[2023-12-11 20:52] LABS: HEPATITIS B SURFACE ANTIGEN NEGATIVE (Negative)
[2023-12-11 20:55] VITALS: BP 136/69; PULSE 93; RESP 20; TEMP 98.1
[2023-12-11 21:12] LABS: HEPATITIS A AB IGM NEGATIVE (Negative)
[2023-12-11 21:13] LABS: HEPATITIS B CORE AB IGM NEGATIVE (Negative); HEPATITIS C AB NON REACTIVE (Neg) (Negative)
[2023-12-11] MEDS: FAMOTIDINE 20MG/2ML VIAL IV SCH (22:08)
[2023-12-11] MEDS: ENOXAPARIN 30MG/0.3ML SYR SUBCUT SCH (22:08)
[2023-12-11] MEDS: LACTULOSE 20G/30ML UDC PO SCH (22:08)
[2023-12-11] MEDS: DEXT 5%/0.45% NACL 1000ML 1,000 ML IV SCH (22:09)
[2023-12-11] MEDS: VANCOMYCIN 1000MG/250ML 250 ML IV NR (23:15)
[2023-12-12] VITALS (9 sets, daily range): BP systolic 103–187; BP diastolic 54–84; PULSE 74–88; RESP 18–21; TEMP 98–98.3
[2023-12-12 00:35] LABS: CREATINE KINASE 193 IU/L (34-145)
[2023-12-12 01:07] LABS: TROPONIN I HIGH SENSITIVITY 102 ng/L (3.0-34)
[2023-12-12] MEDS: PIPERACILLIN/TAZO 3.375G/50ML 50 ML IV NR (01:24)
[2023-12-12] MEDS: BLOOD SUGAR DIAGNOSTIC STRIP TEST SCH (07:10)
[2023-12-12] MEDS: PIPERACILLIN/TAZO 3.375G/50ML 50 ML IV SCH (09:23)
[2023-12-12] MEDS: ASPIRIN 81MG TABLET PO SCH (09:23)
[2023-12-12 13:05] LABS: HEMATOCRIT. 32.8 % (36.0-48.0); HEMOGLOBIN. 10.3 g/dL (12.0-16.0); MEAN CORPUSCULAR HEMOGLOBIN 27.2 pg (28.0-32.0); MEAN CORPUSCULAR HGB CONC 31.5 g/dL (31.0-37.0); MEAN CORPUSCULAR VOLUME 86.5 fL (81.0-99.0); MEAN PLATELET VOLUME 8.3 fl (7.4-10.4); PLATELET 134 x1000/uL (130-400); RED BLOOD CELL COUNT 3.79 mill/uL (4.2-5.4); RED CELL DISTRIBUTION WIDTH 20.7 % (11.6-14.6); WHITE BLOOD COUNT 28.7 x1000/uL (4.5-11.0)
[2023-12-12 13:14] LABS: DIFFERENTIAL COMMENT 1
[2023-12-12 15:36] LABS: HEMATOCRIT 32.4 % (36.0-48.0); HEMOGLOBIN 10.1 g/dL (12.0-16.0); MEAN CORPUSCULAR HEMOGLOBIN 27.6 pg (28.0-32.0); MEAN CORPUSCULAR HGB CONC 31.1 g/dL (31.0-37.0); MEAN CORPUSCULAR VOLUME 88.7 fL (81.0-99.0); PLATELET 131 x1000/uL (130-400); RED BLOOD CELL COUNT 3.65 mill/uL (4.2-5.4); RED CELL DISTRIBUTION WIDTH 20.9 % (11.6-14.6); WHITE BLOOD COUNT 26.4 x1000/uL (4.5-11.0)
[2023-12-12 15:43] LABS: POTASSIUM 3.8 mEq/L (3.5-5.1)
[2023-12-12 15:44] LABS: CALCIUM 9.2 mg/dL (8.7-10.4)
[2023-12-12 15:49] LABS: CREATININE 4.1 mg/dL (0.6-1.0)
[2023-12-12 16:01] LABS: CALCIUM 9.3 mg/dL (8.7-10.4); POTASSIUM 3.9 mEq/L (3.5-5.1)
[2023-12-12 16:09] LABS: CLARITY URINE CLEAR (CLEAR); COLOR URINE YELLOW (YELLOW); GLUCOSE URINE NEGATIVE (NEGATIVE); KETONES URINE NEGATIVE (NEGATIVE); LEUKOCYTE ESTERASE URINE NEGATIVE (NEGATIVE); NITRITE URINE NEGATIVE (NEGATIVE); OCCULT BLOOD URINE NEGATIVE (NEGATIVE); PROTEIN URINE 4+ (NEGATIVE); SPECIFIC GRAVITY URINE 1.014 (1.005-1.030)
[2023-12-12 16:13] LABS: T4 FREE 0.91 ng/dL (0.89-1.76); THYROID STIMULATING HORMONE 1.24 uIU/mL (0.55-4.78)
[2023-12-12 17:19] LABS: BACTERIA URINE NONE SEEN; RBC URINE 0-2 /hpf (0-2); WBC URINE NONE SEEN /hpf (0-2)
[2023-12-12 17:20] LABS: SQUAMOUS EPITHELIAL CELL URINE FEW /lpf (RARE/1+)
[2023-12-12] MEDS ORDERED: ASPIRIN 81MG TABLET PO SCH (17:45)
[2023-12-12 19:00] LABS: ANISOCYTOSIS 1+; PLATELET ESTIMATE NORMAL
[2023-12-12] MEDS: ATORVASTATIN CALCIUM 20MG TABLET PO SCH (21:04)
[2023-12-12] MEDS: VANCOMYCIN 750MG PREMIX 150 ML IV SCH (21:05)
[2023-12-12] MEDS: HYDRALAZINE HCL 50MG TABLET PO SCH (21:05)
[2023-12-13] VITALS: BP 143/58; PULSE 87; RESP 22; TEMP 98.1
[2023-12-13 04:00] VITALS: BP 143/56; PULSE 85; RESP 19; TEMP 98.8
[2023-12-13 06:57] LABS: HEMATOCRIT 29.9 % (36.0-48.0); HEMOGLOBIN 9.9 g/dL (12.0-16.0); MEAN CORPUSCULAR HEMOGLOBIN 28.5 pg (28.0-32.0); MEAN CORPUSCULAR HGB CONC 33.1 g/dL (31.0-37.0); MEAN CORPUSCULAR VOLUME 86.3 fL (81.0-99.0); PLATELET 127 x1000/uL (130-400); RED BLOOD CELL COUNT 3.47 mill/uL (4.2-5.4); RED CELL DISTRIBUTION WIDTH 20.7 % (11.6-14.6); WHITE BLOOD COUNT 19.3 x1000/uL (4.5-11.0)
[2023-12-13 07:18] LABS: POTASSIUM 3.8 mEq/L (3.5-5.1)
[2023-12-13 07:20] LABS: CALCIUM 8.9 mg/dL (8.7-10.4)
[2023-12-13 08:00] VITALS: BP 153/57; PULSE 86; RESP 18; TEMP 96.4
[2023-12-13 08:40] LABS: CREATININE 5.2 mg/dL (0.6-1.0)
[2023-12-13 12:00] VITALS: BP 140/64; PULSE 81; RESP 18; TEMP 97.7
[2023-12-13 16:49] VITALS: BP 139/62; PULSE 80; RESP 18; TEMP 98.8
[2023-12-13] MEDS: CEFEPIME 1GM/50ML 50 ML IV SCH (17:17)
[2023-12-13 20:00] VITALS: BP 143/56; PULSE 81; RESP 18; TEMP 97.9
[2023-12-14] VITALS (12 sets, daily range): BP systolic 134–162; BP diastolic 61–82; PULSE 77–85; RESP 16–20; TEMP 97.5–98.2
[2023-12-14 09:13] LABS: HEMATOCRIT 31.1 % (36.0-48.0); HEMOGLOBIN 9.8 g/dL (12.0-16.0); MEAN CORPUSCULAR HEMOGLOBIN 27.5 pg (28.0-32.0); MEAN CORPUSCULAR HGB CONC 31.7 g/dL (31.0-37.0); MEAN CORPUSCULAR VOLUME 86.6 fL (81.0-99.0); PLATELET 139 x1000/uL (130-400); RED BLOOD CELL COUNT 3.59 mill/uL (4.2-5.4); RED CELL DISTRIBUTION WIDTH 21.2 % (11.6-14.6)
[2023-12-14 09:25] LABS: POTASSIUM 4.2 mEq/L (3.5-5.1)
[2023-12-14 09:43] LABS: CREATININE 6.6 mg/dL (0.6-1.0)
[2023-12-15] MEDS: DEXTROSE 50% WATER 50ML SYRINGE IV PRN (06:03)
[2023-12-15 08:00] VITALS: BP 162/68; PULSE 82; RESP 20; TEMP 97.9
[2023-12-15 12:11] VITALS: BP 112/64; PULSE 100; RESP 18; TEMP 99
[2023-12-15 12:33] LABS: HEMATOCRIT. 33.6 % (36.0-48.0); HEMOGLOBIN. 10.9 g/dL (12.0-16.0); MEAN CORPUSCULAR HEMOGLOBIN 27.8 pg (28.0-32.0); MEAN CORPUSCULAR HGB CONC 32.3 g/dL (31.0-37.0); MEAN PLATELET VOLUME 7.8 fl (7.4-10.4); PLATELET 159 x1000/uL (130-400); RED BLOOD CELL COUNT 3.91 mill/uL (4.2-5.4); RED CELL DISTRIBUTION WIDTH 20.6 % (11.6-14.6); WHITE BLOOD COUNT 9.4 x1000/uL (4.5-11.0)
[2023-12-15 12:34] LABS: POTASSIUM 3.6 mEq/L (3.5-5.1)
[2023-12-15 12:35] LABS: CALCIUM 8.9 mg/dL (8.7-10.4)
[2023-12-15 12:45] LABS: CREATININE 6.1 mg/dL (0.6-1.0)
[2023-12-15 12:59] LABS: DIFFERENTIAL COMMENT 1
[2023-12-15 16:00] VITALS: BP 137/56; PULSE 81; RESP 18; TEMP 98.7
[2023-12-15 16:08] VITALS: BP 138/56; PULSE 82; TEMP 98.6
[2023-12-15 16:20] LABS: ANISOCYTOSIS 1+; PLATELET ESTIMATE NORMAL
[2023-12-15] MEDS: AMLODIPINE 5MG TABLET PO SCH (17:20)
[2023-12-15 20:00] VITALS: BP 120/72; PULSE 80; RESP 18; TEMP 98.6
[2023-12-16] VITALS: BP 137/69; PULSE 79; RESP 19; TEMP 98.3
[2023-12-16 04:00] VITALS: BP 157/71; PULSE 81; RESP 16; TEMP 97.9
[2023-12-16 08:00] VITALS: BP 120/72; PULSE 80; RESP 18; TEMP 98.1
[2023-12-16 09:45] LABS: CHLORIDE 102 mEq/L (98-107); SODIUM 136 mEq/L (136-145)
[2023-12-16 09:46] LABS: CALCIUM 9.5 mg/dL (8.7-10.4); CARBON DIOXIDE 25 mEq/L (21-32)
[2023-12-16 09:51] LABS: GLUCOSE 82 mg/dL (70-105); UREA NITROGEN BLOOD 43 mg/dL (9-23)
[2023-12-16] MEDS ORDERED: AMLO5TAB88 PO (10:24)
[2023-12-16] MEDS ORDERED: CEPH500C2 PO (10:24)
[2023-12-16 10:39] LABS: CREATININE 7.3 mg/dL (0.6-1.0)
[2023-12-16 12:00] VITALS: BP 110/81; PULSE 85; RESP 16; TEMP 98.8
[2023-12-16 12:41] VITALS: BP 110/71; PULSE 81; TEMP 98; O2SAT 97
[2023-12-16] MEDS ORDERED: LEVO-65 PO (14:29)
[2023-12-16] MEDS ORDERED: CEPH750C7 PO (15:26)
== END 2023-12-16 17:44 | DRG 871 ==
LOC: ER 12:21 → EDBEDREQ 12:34 → 8WST 21:11
PROVIDERS: ADMIT Internal Medicine; ATTEND Internal Medicine
PROC: 5A1D70Z Performance of Urinary Filtration, Intermittent, Less than 6 Hours Per Day (ICD-10-PCS; principal; 2023-12-12)
PROC: 5A1D70Z Performance of Urinary Filtration, Intermittent, Less than 6 Hours Per Day (ICD-10-PCS; 2023-12-14)
DX: A41.9 Sepsis, unspecified organism (principal); G92.8 Other toxic encephalopathy; L89.153 Pressure ulcer of sacral region, stage 3; N18.6 End stage renal disease; N39.0 Urinary tract infection, site not specified; I24.89 Other forms of acute ischemic heart disease; I12.0 Hypertensive chronic kidney disease with stage 5 chronic kidney disease or end stage renal disease; R65.20 Severe sepsis without septic shock; E11.649 Type 2 diabetes mellitus with hypoglycemia without coma; B96.89 Other specified bacterial agents as the cause of diseases classified elsewhere; D64.9 Anemia, unspecified; E11.22 Type 2 diabetes mellitus with diabetic chronic kidney disease; E78.00 Pure hypercholesterolemia, unspecified; J44.9 Chronic obstructive pulmonary disease, unspecified; K59.00 Constipation, unspecified; Z79.82 Long term (current) use of aspirin; Z86.73 Personal history of transient ischemic attack (TIA), and cerebral infarction without residual deficits; Z88.2 Allergy status to sulfonamides; Z88.3 Allergy status to other anti-infective agents; Z90.710 Acquired absence of both cervix and uterus; Z99.2 Dependence on renal dialysis
CPT/HCPCS: 36415; 71045; 73030; 74176; 80048; 80061; 80076; 80202; 81003; 82550; 82962; 83036; 83605; 83735; 83880; 84100; 84145; 84439; 84443; 84484; 85025; 85027; 85379; 86705; 86709; 87077; 87186; 87340; 90935; 93005; 93306; 93970; 97167; 99291; J0692; J0696; J1650; J2543; J3370; J3490; J7030

== ENCOUNTER 2025-03-08 08:34 | Inpatient (IN) | payer MEDICARE, MEDICAID ==
[2025-03-08] VITALS (50 sets, daily range): BP systolic 42–138; BP diastolic 20–82; PULSE 74–104; RESP 10–20; TEMP 36.6–36.8; O2SAT 95–99
[~2025-03-08] VITALS: Ht 157.5 cm; Wt 67.1 kg
[~2025-03-08 08:34] MED LIST changes: +AMLO5TAB88 PO; +CEPH750C7 PO; -T3 PO
[2025-03-08] MEDS: SODIUM CHLORIDE 0.9% 1,000 ML IV ONE ×2 (08:53→09:50)
[2025-03-08 09:04] LABS: BASOPHILS % 1.1 % (0.0-2.0); EOSINOPHILS % 9.3 % (0.0-5.0); HEMATOCRIT. 25.5 % (36.0-48.0); HEMOGLOBIN. 7.7 g/dL (12.0-16.0); LYMPHOCYTES % 22.6 % (20.0-50.0); MEAN PLATELET VOLUME 7.3 fl (7.4-10.4); MONOCYTES % 8.5 % (2.0-8.0); NEUTROPHILS % 58.5 % (40.0-76.0); PLATELET 222 x1000/uL (130-400); RED BLOOD CELL COUNT 2.57 mill/uL (4.2-5.4); RED CELL DISTRIBUTION WIDTH 17.3 % (11.6-14.6)
[2025-03-08 09:19] LABS: UREA NITROGEN BLOOD 35.0 mg/dL (9-23)
[2025-03-08 09:27] LABS: CREATININE 7.2 mg/dL (0.6-1.0)
[2025-03-08 10:07] LABS: INR 1.1
[2025-03-08] MEDS: NOREPINEPHRINE 8MG/250ML PMX 250 ML IV SCH (10:15)
[2025-03-08] MEDS ORDERED: ONDANSETRON HCL 4MG/2ML INJ IV PRN (12:30)
[2025-03-08] MEDS ORDERED: GUAIFENESIN 200MG/10ML SUGAR FREE UDC PO PRN (12:30)
[2025-03-08] MEDS ORDERED: ACETAMINOPHEN 325MG TABLET PO PRN (12:30)
[2025-03-08] MEDS ORDERED: IPRATROPIUM/ALBUTEROL 0.5-3(2.5)MG/3ML NEB HHN PRN (12:30)
[2025-03-08] MEDS: INSULIN LISPRO 100 UNITS/ML SUBCUT SCH (13:20)
[2025-03-08] MEDS: BLOOD SUGAR DIAGNOSTIC STRIP TEST SCH (13:48)
[2025-03-08] MEDS ORDERED: NOREPINEPHRINE 8MG/250ML PMX 250 ML IV SCH (14:00)
[2025-03-08 15:14] LABS: PLATELET 265 x1000/uL (130-400); RED BLOOD CELL COUNT 3.73 mill/uL (4.2-5.4); RED CELL DISTRIBUTION WIDTH 17.3 % (11.6-14.6)
[2025-03-08 15:28] LABS: CREATINE KINASE MB FRACTION 4.0 ng/mL (0.5-3.6)
[2025-03-08 15:33] LABS: FOLIC ACID (FOLATE) SERUM > 20.00 ng/mL (>5.38); VITAMIN B12 SERUM 505 pg/mL (211-911)
[2025-03-08] MEDS: PHENYLEPHRINE 50MG/250ML PMX 250 ML IV PRN (15:39)
[2025-03-08 17:04] LABS: TROPONIN I HIGH SENSITIVITY 411 ng/L (3.0-34)
[2025-03-08] MEDS: ATORVASTATIN CALCIUM 20MG TABLET PO SCH (20:12)
[2025-03-08 20:36] LABS: PLATELET 229 x1000/uL (130-400); RED BLOOD CELL COUNT 3.21 mill/uL (4.2-5.4); RED CELL DISTRIBUTION WIDTH 16.9 % (11.6-14.6)
[2025-03-08 23:54] LABS: CREATINE KINASE MB FRACTION 4.0 ng/mL (0.5-3.6)
[2025-03-09] VITALS (77 sets, daily range): BP systolic 92–153; BP diastolic 32–75; PULSE 70–95; RESP 6–18; TEMP 36.6–36.9; O2SAT 91–100
[2025-03-09 00:07] LABS: TROPONIN I HIGH SENSITIVITY 865.0 ng/L (3.0-34)
[2025-03-09] MEDS: DEXTROSE 50% WATER 50ML SYRINGE IV PRN (05:42)
[2025-03-09] MEDS: DOCUSATE SODIUM 100MG CAPSULE PO PRN (05:42)
[2025-03-09] MEDS: MAGNESIUM/ALUMINUM HYDROXIDE/SIMETHICONE 30ML UDC PO PRN (05:42)
[2025-03-09] MEDS: ACETAMINOPHEN 325MG TABLET PO PRN (05:43)
[2025-03-09 05:50] LABS: BASOPHILS % 1.0 % (0.0-2.0); EOSINOPHILS % 0.9 % (0.0-5.0); HEMATOCRIT. 27.3 % (36.0-48.0); HEMOGLOBIN. 8.6 g/dL (12.0-16.0); LYMPHOCYTES % 10.8 % (20.0-50.0); MEAN PLATELET VOLUME 7.7 fl (7.4-10.4); MONOCYTES % 10.3 % (2.0-8.0); NEUTROPHILS % 77.0 % (40.0-76.0); PLATELET 224 x1000/uL (130-400); RED BLOOD CELL COUNT 2.87 mill/uL (4.2-5.4); RED CELL DISTRIBUTION WIDTH 17.3 % (11.6-14.6)
[2025-03-09 06:10] LABS: TRIGLYCERIDE 84.0 mg/dL (0-150); UREA NITROGEN BLOOD 48.0 mg/dL (9-23)
[2025-03-09 06:11] LABS: LDL CHOLESTEROL 65.0 mg/dL (5-100)
[2025-03-09 06:12] LABS: PHOSPHORUS 3.8 mg/dL (2.5-4.9); T4 FREE 0.82 ng/dL (0.89-1.76)
[2025-03-09 06:19] LABS: CREATININE 9.0 mg/dL (0.6-1.0)
[2025-03-09] MEDS: MULTIVITAMINS,THER W-MINERALS TABLET PO SCH (08:38)
[2025-03-09] MEDS: FERROUS SULFATE 325MG TABLET PO SCH (08:38)
[2025-03-09] MEDS: THIAMINE HCL 100MG TABLET PO SCH (08:38)
[2025-03-09] MEDS: FOLIC ACID 1MG TABLET PO SCH (08:38)
[2025-03-09] MEDS: PANTOPRAZOLE SODIUM 40 MG/VIAL IV SCH (08:38)
[2025-03-09 11:30] LABS: ASPARTATE AMINOTRANSFERASE 16 IU/L (<34); BILIRUBIN DIRECT < 0.1 mg/dL (<=3.0); BILIRUBIN TOTAL < 0.2 mg/dL (0.1-1.0); PROTEIN TOTAL 6.0 g/dL (6.0-8.3)
[2025-03-09] MEDS ORDERED: MIDODRINE HCL 2.5MG TABLET PO SCH (13:00)
[2025-03-09] MEDS: MIDODRINE HCL 5MG TABLET PO SCH (14:13)
[2025-03-09] MEDS: SODIUM CHLORIDE 0.9% 1,000 ML IV ONE (18:49)
[2025-03-10] VITALS (34 sets, daily range): BP systolic 122–167; BP diastolic 33–96; PULSE 72–83; RESP 11–22; TEMP 36.3–36.9; O2SAT 94–100
[2025-03-10 05:21] LABS: PLATELET 196 x1000/uL (130-400); RED BLOOD CELL COUNT 2.58 mill/uL (4.2-5.4); RED CELL DISTRIBUTION WIDTH 16.2 % (11.6-14.6)
[2025-03-10 05:29] LABS: UREA NITROGEN BLOOD 60 mg/dL (9-23)
[2025-03-10 05:31] LABS: PHOSPHORUS 3.6 mg/dL (2.5-4.9)
[2025-03-10 05:39] LABS: CREATININE 9.8 mg/dL (0.6-1.0)
[2025-03-10] MEDS: LACTULOSE 20G/30ML UDC PO PRN (10:36)
[2025-03-10] MEDS: HYDRALAZINE 20MG/ML VIAL IV PRN (13:24)
[2025-03-10 19:12] LABS: HEPATITIS A AB IGM NEGATIVE (Negative)
[2025-03-10 19:13] LABS: HEPATITIS B CORE AB IGM NEGATIVE (Negative); HEPATITIS C AB NON REACTIVE (Neg) (Negative)
[2025-03-10] MEDS ORDERED: HYDR100T31 PO (19:30)
[2025-03-10] MEDS ORDERED: AMLO10TA80 PO (19:30)
[2025-03-10] MEDS: EPOETIN ALFA-EPBX 4,000 UNITS/ML VIAL SUBCUT SCH (22:12)
[2025-03-11] VITALS (13 sets, daily range): BP systolic 116–178; BP diastolic 36–84; PULSE 71–84; RESP 18–20; TEMP 36.5–37.2; O2SAT 95–100
[2025-03-11 08:32] LABS: BASOPHILS % 0.7 % (0.0-2.0); EOSINOPHILS % 4.1 % (0.0-5.0); HEMATOCRIT. 24.1 % (36.0-48.0); HEMOGLOBIN. 7.5 g/dL (12.0-16.0); LYMPHOCYTES % 9.8 % (20.0-50.0); MEAN PLATELET VOLUME 7.4 fl (7.4-10.4); MONOCYTES % 6.1 % (2.0-8.0); NEUTROPHILS % 79.3 % (40.0-76.0); PLATELET 187 x1000/uL (130-400); RED BLOOD CELL COUNT 2.47 mill/uL (4.2-5.4); RED CELL DISTRIBUTION WIDTH 16.6 % (11.6-14.6)
[2025-03-11 08:43] LABS: UREA NITROGEN BLOOD 64.0 mg/dL (9-23)
[2025-03-11 09:24] LABS: CREATININE 11.4 mg/dL (0.6-1.0)
[2025-03-11] MEDS ORDERED: LIDOCAINE HCL 1% 10 MG/ML 10ML VIAL ONE (11:30)
[2025-03-11] MEDS ORDERED: HEPARIN 1000 UNITS/ML 10ML ONE (13:17)
[2025-03-12] VITALS: BP 137/43; PULSE 76; RESP 19; TEMP 36.4; O2SAT 97
[2025-03-12 04:00] VITALS: BP 153/45; PULSE 74; RESP 19; TEMP 36.2; O2SAT 100
[2025-03-12 08:30] VITALS: BP 147/53; PULSE 76; RESP 20; TEMP 36.5; O2SAT 98
[2025-03-12 12:00] VITALS: BP 154/48; PULSE 79; RESP 20; TEMP 37.1; O2SAT 97
[2025-03-12 12:06] LABS: UREA NITROGEN BLOOD 52 mg/dL (9-23)
[2025-03-12 12:08] LABS: PHOSPHORUS 3.5 mg/dL (2.5-4.9)
[2025-03-12 12:29] LABS: CREATININE 9.5 mg/dL (0.6-1.0)
[2025-03-12 16:38] VITALS: BP 174/52; PULSE 76; RESP 20; TEMP 36.5; O2SAT 96
[2025-03-12 17:08] LABS: BASOPHILS % 0.9 % (0.0-2.0); EOSINOPHILS % 6.4 % (0.0-5.0); HEMATOCRIT. 21.9 % (36.0-48.0); HEMOGLOBIN. 7.2 g/dL (12.0-16.0); LYMPHOCYTES % 13.3 % (20.0-50.0); MEAN PLATELET VOLUME 7.5 fl (7.4-10.4); MONOCYTES % 12.1 % (2.0-8.0); NEUTROPHILS % 67.3 % (40.0-76.0); PLATELET 200 x1000/uL (130-400); RED BLOOD CELL COUNT 2.40 mill/uL (4.2-5.4); RED CELL DISTRIBUTION WIDTH 15.7 % (11.6-14.6)
[2025-03-12 20:00] VITALS: BP 156/66; PULSE 80; RESP 18; TEMP 36.4; O2SAT 97
[2025-03-12] MEDS: EPOETIN ALFA-EPBX 4,000 UNITS/ML VIAL SUBCUT SCH (20:57)
[2025-03-12] MEDS: CLONIDINE 0.1MG TABLET PO PRN (20:57)
[2025-03-13] VITALS (10 sets, daily range): BP systolic 130–174; BP diastolic 44–85; PULSE 72–95; RESP 18–20; TEMP 36.4–36.8; O2SAT 97–100
[2025-03-13 06:17] LABS: UREA NITROGEN BLOOD 63.0 mg/dL (9-23)
[2025-03-13 06:35] LABS: CREATININE 11.1 mg/dL (0.6-1.0)
[2025-03-13 07:08] LABS: PLATELET 221 x1000/uL (130-400); RED BLOOD CELL COUNT 2.40 mill/uL (4.2-5.4); RED CELL DISTRIBUTION WIDTH 15.3 % (11.6-14.6)
[2025-03-13] MEDS: AMLODIPINE 2.5MG TABLET PO SCH ×2 (09:04→13:00)
[2025-03-14] MEDS ORDERED: AMLODIPINE 5MG TABLET PO SCH (09:00)
== END 2025-03-13 17:35 | disposition short-term general hospital (02) | DRG 314 ==
LOC: ER 08:34 → MICUNO 10:27 → EDBEDREQSVC 10:31 → EDBEDREQ 10:31 → EDBEDREQTM 10:31 → ENRESERV 10:57 → 7WST 03-10 12:38 → UNDODISIN 03-13 13:05
PROVIDERS: ADMIT Internal Medicine; ATTEND Internal Medicine
PROC: 02HV33Z Insertion of Infusion Device into Superior Vena Cava, Percutaneous Approach (ICD-10-PCS; 2025-03-08)
PROC: B548ZZA Ultrasonography of Superior Vena Cava, Guidance (ICD-10-PCS; 2025-03-08)
PROC: 30233N1 Transfusion of Nonautologous Red Blood Cells into Peripheral Vein, Percutaneous Approach (ICD-10-PCS; 2025-03-08)
PROC: 02H633Z Insertion of Infusion Device into Right Atrium, Percutaneous Approach (ICD-10-PCS; principal; 2025-03-11)
PROC: B548ZZA Ultrasonography of Superior Vena Cava, Guidance (ICD-10-PCS; 2025-03-11)
PROC: 5A1D70Z Performance of Urinary Filtration, Intermittent, Less than 6 Hours Per Day (ICD-10-PCS; 2025-03-11)
PROC: 5A1D70Z Performance of Urinary Filtration, Intermittent, Less than 6 Hours Per Day (ICD-10-PCS; 2025-03-13)
DX: T82.838A Hemorrhage due to vascular prosthetic devices, implants and grafts, initial encounter (principal); N18.6 End stage renal disease; R57.8 Other shock; D62 Acute posthemorrhagic anemia; I13.2 Hypertensive heart and chronic kidney disease with heart failure and with stage 5 chronic kidney disease, or end stage renal disease; D63.1 Anemia in chronic kidney disease; D72.10 Eosinophilia, unspecified; J44.9 Chronic obstructive pulmonary disease, unspecified; J39.8 Other specified diseases of upper respiratory tract; E11.22 Type 2 diabetes mellitus with diabetic chronic kidney disease; E78.00 Pure hypercholesterolemia, unspecified; Z79.82 Long term (current) use of aspirin; Z99.2 Dependence on renal dialysis; Z99.3 Dependence on wheelchair; Z79.899 Other long term (current) drug therapy; Z86.73 Personal history of transient ischemic attack (TIA), and cerebral infarction without residual deficits; Z88.2 Allergy status to sulfonamides; Z88.3 Allergy status to other anti-infective agents; Z90.710 Acquired absence of both cervix and uterus; Y83.8 Other surgical procedures as the cause of abnormal reaction of the patient, or of later complication, without mention of misadventure at the time of the procedure; Y92.89 Other specified places as the place of occurrence of the external cause
CPT/HCPCS: 36415; 36430; 36556; 36573; 71045; 77001; 80048; 80061; 80076; 82550; 82553; 82607; 82728; 82746; 82962; 83036; 83540; 83550; 83735; 84100; 84439; 84443; 84484; 85025; 85027; 85044; 86705; 86709; 86850; 86900; 86920; 87340; 90935; 93005; 93970; 97162; 97166; 97530; 97535; 99291; C1725; C1752; J0360; J0885; J1642; J1644; J1815; J2003; J2371; J2470; J3490; J7030; P9016